=== PATIENT | male | born 1995 | race African-American/Black ===

== ENCOUNTER → 2016-08-16 | Outpatient (CLI) | payer OTHER ==
[~2016-08-16] MED LIST: CONRAY-43 43% 50ML VIAL (Q9960) As Ordered ONE
--- NOTE | 2016-08-16 09:44 | REP ---
MR ARTHROGRAM RIGHT SHOULDER: TECHNIQUE: Axial T2 fat sat, coronal oblique T1, T2 fat sat, post arthrogram axial T1 fat sat, proton density, coronal oblique T1 fat sat, T2 sat, sagittal oblique T2 fat sat, ABER T1 fat sat. There is mild ill-defined high signal involving the supraspinatus tendon compatible with tendinopathy/tendinitis of a relatively mild degree. No rotator cuff tendon tear is seen. I do not see significant hypertrophic degenerative changes of the acromioclavicular joint. The acromion is slightly downward sloping and mildly curved in shape. Biceps tendon is within the bicipital groove with no tenosynovitis. There is no Hill-Sachs deformity. Deltoid muscle demonstrates no abnormal signal. Biceps labral complex is intact. I do not see evidence of a SLAP lesion or labral tear. There are a few tiny subchondral cysts in the superolateral humeral head. There is no bone marrow edema or occult fracture. There is no joint effusion. There is no paralabral cyst. IMPRESSION: Mild supraspinatus tendinopathy/tendinitis. No rotator cuff tear or labral tear. Mild subchondral cystic changes superolateral humeral head. Signed by Alfonso Suazo MD 08/17/2016 12:45 P
--- NOTE | 2016-08-16 09:51 | REP ---
Procedure: Right shoulder arthrogram The procedure was performed under the direct supervision of Dr. Bernstein. History: Right shoulder pain The benefits and risks including but not limited to pain, infection, bleeding and anaphylaxis were explained to the patient and informed consent was obtained. Technique: The right glenohumeral joint space was localized using fluoroscopic guidance. The skin was prepped and draped in a sterile fashion. 1% lidocaine was used as a local anesthetic. Using fluoroscopic guidance a 22 gauge spinal needle was inserted and advanced into the joint. 0.5 ml of Conray 43 was injected to verify placement. 11 ml of a solution containing 20 ml of sterile saline and 0.15 ml of ProHance was injected into the joint. The needle was removed and the patient was taken to MRI for postprocedural imaging. The the patient tolerated the procedure well and there were no immediate complications. 1 second of fluoro time was utilized for this procedure. Reviewed by LUISANA Tinajero 08/16/2016 08:23 ASigned by George Bernstein MD 08/16/2016 09:41 A
== END ==
LOC: M RADPRO 06:59
PROVIDERS: ATTEND Physician Assistant
DX: M65.811 Other synovitis and tenosynovitis, right shoulder (principal); M25.811 Other specified joint disorders, right shoulder
CPT/HCPCS: 23350; 73223; 77002; A9576; Q9960